=== PATIENT | male | born 1970 | race Caucasian/White ===

== ENCOUNTER 2024-08-19 10:47 | Outpatient (CLI) | payer OTHER | END 2024-08-19 10:48 | disposition home or self-care (01) | LOC: SCSMRI 10:47 | PROVIDERS: ATTEND Nurse Practitioner Family | DX: Z02.6 Encounter for examination for insurance purposes (principal); M25.551 Pain in right hip; S39.012A Strain of muscle, fascia and tendon of lower back, initial encounter; M47.816 Spondylosis without myelopathy or radiculopathy, lumbar region; M47.817 Spondylosis without myelopathy or radiculopathy, lumbosacral region; N28.89 Other specified disorders of kidney and ureter | CPT/HCPCS: 72148 ==

== ENCOUNTER 2024-09-22 08:03 | Outpatient (CLI) | payer BC | END 2024-09-22 08:04 | disposition home or self-care (01) | LOC: ULT 08:03 | PROVIDERS: ATTEND Nurse Practitioner Family | DX: N28.9 Disorder of kidney and ureter, unspecified (principal) | CPT/HCPCS: 76770 ==